=== PATIENT | male | born 1985 | race Native Hawaiian/Other Pacific Islander ===

== ENCOUNTER 2016-09-29 02:43 | Emergency (ER) | payer SELFPAY ==
[2016-09-29] MEDS ORDERED: TORADOL IV ONE (02:57)
[2016-09-29] MEDS ORDERED: ZOFRAN IV ONE ×2 (02:57→10:15)
[2016-09-29 03:35] LABS: Basophils % (Auto) 0.4 % (0.0-1.8); Eosinophils % (Auto) 0.9 % (0.0-4.3); Hematocrit 41.5 % (35.5-45.6); Hemoglobin 13.7 gm/dl (11.8-15.2); Mean Corpuscular HGB Conc 33 % (32-34); Mean Corpuscular Hemoglobin 29 pg (28-32); Mean Corpuscular Volume 86 fl (84-94); Platelet Count 236 K/mm3 (140-440); Red Blood Count 4.81 M/mm3 (3.65-5.03); Red Cell Distribution Width 12.6 % (13.2-15.2); White Blood Count 12.8 K/mm3 (4.5-11.0)
[2016-09-29 03:40] LABS: Anion Gap 18 mmol/L; BUN/Creatinine Ratio 23.75; Blood Urea Nitrogen 19 mg/dL (9-20); Calcium 9.2 mg/dL (8.4-10.2); Carbon Dioxide 25 mmol/L (22-30); Chloride 98.2 mmol/L (98-107); Glucose 140 mg/dL (75-100); Potassium 4.4 mmol/L (3.6-5.0); Sodium 137 mmol/L (137-145)
[2016-09-29 05:05] LABS: Bilirubin,Urine NEG (Negative); Blood,Urine LG (Negative); Ketones,Urine NEG (Negative); Leukocyte Esterase,Urine NEG (Negative); Mucus,Urine 1+ /HPF; Nitrite,Urine NEG (Negative); Protein,Urine <15 mg/dL mg/dL (Negative); Urobilinogen,Urine < 2.0 mg/dL (<2.0)
[2016-09-29 10:00] VITALS: BP 142/80
[2016-09-29] MEDS ORDERED: MORPHINE IV ONE (10:15)
--- NOTE | 2016-09-29 10:34 | Emergency Department Report ---
HPI - General Chief Complaint: Abdominal Pain Time Seen by Provider: 09/29/16 10:11 - HPI HPI: Chief complaint: Left flank pain HPI: Patient with a history of kidney stones states he's been having acute onset of left flank pain for the last 2 days. Patient states that similar to previous kidney stones. Patient had some nausea and vomiting prior to admission. Patient denies fever, chest pain, abdominal pain. Patient was given Toradol prior to my evaluation and states it helped his pain. Mode of arrival: private car Source: Patient Began: 2 days Duration: 2 days Context: See above Quality: Sharp colicky Severity: 10 out of 10 Improved with: Toradol Worsened with: Nothing Associated signs and symptoms: Denies hematuria ED Past Medical Hx - Past Medical History Previous Medical History?: No Additional medical history: Kidney stones - Surgical History Past Surgical History?: No - Social History Smoking Status: Never Smoker Substance Use Type: Alcohol - Medications Home Medications: Home Medications Medication Instructions Recorded Confirmed Last Taken Type Oxycodone HCl/Acetaminophen 1 each PO Q6HR PRN #20 tablet 09/29/16 Unknown Rx [Percocet 10/325 mg] ED Review of Systems ROS: Stated complaint: LOWER BACK PAIN Other details as noted in HPI ROS Constitutional: No fever ENT: No uri symptoms Cardiovascular: No chest pain Respiratory: No sob or cough GI: No diarrhea : No dysuria frequency or urgency, Skin: No rash Neuro: No focal weakness or numbness Psych: No depression Inocencio/lymph: No edema Physical Exam - Physical Exam Vital Signs: Vital Signs 09/29/16 09/29/16 09/29/16 02:52 09:59 10:00 Temperature 98.3 F Pulse Rate 59 L 61 Respiratory 24 20 20 Rate Blood Pressure 141/104 Blood Pressure 142/80 [Right] O2 Sat by Pulse 99 100 100 Oximetry Physical Exam: GENERAL: The patient is well-developed well-nourished male in no acute distress. HEENT: Normocephalic. Atraumatic. Extraocular motions are intact. Patient has moist mucous membranes. NECK: Supple. No meningitic signs are noted. There is no adenopathy noted. CHEST/LUNGS: Clear to auscultation. There is no respiratory distress noted. HEART/CARDIOVASCULAR: Regular. There is no tachycardia. There is no gallop rub or murmur. ABDOMEN: Abdomen is soft, nontender. Patient has normal bowel sounds. There is no abdominal distention. Mild left flank tenderness. SKIN: There is no rash. There is no edema. There is no diaphoresis. NEURO: The patient is awake, alert, and oriented. The patient is cooperative. The patient has no focal neurologic deficits. The patient has normal speech. MUSCULOSKELETAL: There is no tenderness or deformity. There is no limitation range of motion. There is no evidence of acute injury. ED Course Vital Signs 09/29/16 09/29/16 09/29/16 02:52 09:59 10:00 Temperature 98.3 F Pulse Rate 59 L 61 Respiratory 24 20 20 Rate Blood Pressure 141/104 Blood Pressure 142/80 [Right] O2 Sat by Pulse 99 100 100 Oximetry - Reevaluation(s) Reevaluation #1: 09/29/16 10:18 In addition to the Toradol patient will be given another dose of Zofran and 4 mg of IV morphine and a CT of the abdomen and pelvis without contrast has been ordered. ED Medical Decision Making - Lab Data Result diagrams: 09/29/16 03:07 09/29/16 03:07 - Radiology Data Radiology results: report reviewed (6.1 mm midureteral stone with mild obstruction on the left.) Critical care attestation.: If time is entered above; I have spent that time in minutes in the direct care of this critically ill patient, excluding procedure time. ED Disposition Clinical Impression: Kidney stone on left side Disposition: DISCHARGED TO HOME OR SELFCARE Is pt being admited?: No Does the pt Need Aspirin: No Condition: Stable Instructions: Kidney Stones (ED) Prescriptions: Oxycodone HCl/Acetaminophen [Percocet 10/325 mg] 1 each PO Q6HR PRN #20 tablet PRN Reason: Pain Referrals: PRIMARY CAREMD [Primary Care Provider] - 3-5 Days CARON PICKERING MD [Staff Physician] - 3-5 Days (Dr. Pickering is a urologist for you to follow-up with.) Time of Disposition: 11:32 Print Language: FAROESE
--- NOTE | 2016-09-29 11:09 | Cat Scan Report ---
CT OF THE ABDOMEN AND PELVIS WITHOUT CONTRAST HISTORY: Left flank pain, kidney stones. TECHNIQUE: Helical CT without contrast. Sagittal and coronal reformatted images. FINDINGS: A 6.1 mm calculus is identified in the mid left ureter on image 184, series 2. There is mild upstream left hydronephrosis. No additional ureteral stones. A punctate calyceal stone is identified the mid left kidney on image 130. The right kidney and collecting system are unremarkable. Within the limits of a noncontrast exam, the remaining abdominal and pelvic viscera are within normal limits. The liver, biliary system, pancreas, spleen, adrenal glands and bladder are unremarkable. The bowel loops are normal caliber and wall thickness. Normal appendix. The aorta is normal caliber. No ascites, bulky adenopathy or inflammatory changes. The lung bases are clear. Normal heart size. No suspicious bony lesion. IMPRESSION: 6.1 mm left ureteral calculus, mildly obstructing. Punctate left renal stone.
== END 2016-09-29 11:50 | disposition home or self-care (01) ==
LOC: ED 02:43
DX: N20.0 Calculus of kidney (principal)
CPT/HCPCS: 36415; 74176; 80048; 81001; 85025; 96374; 96375; 96376; 99284; J1885; J2270; J2405